=== PATIENT | female | born 2005 | race Caucasian/White ===

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

== ENCOUNTER → 2025-03-23 | Outpatient (CLI) | payer OTHER ==
--- NOTE | 2025-03-24 10:48 | MR ---
MR knee LT wo con DATE OF EXAM: 03/23/2025 9:35 PM COMPARISON: None. CLINICAL INDICATION: Female, 19 years old with history of M23.92; PHH, left knee outer pain and swell ing x3 weeks TECHNIQUE: Noncontrast multiplanar, multiecho imaging of the left knee was performed, including T1-we ighted and fluid sensitive sequences. FINDINGS: Medial meniscus: Intact. Lateral meniscus: Intact. ACL: Intact. PCL: Intact. MCL: Intact. Lateral ligaments and tendons: Intact. Extensor mechanism: The quadriceps and patellar tendons are intact. Fat pads: Preserved. Articular cartilage: Patellofemoral compartment: Intact. Medial compartment: Intact. Lateral compartment: Intact. Bone marrow: Incidental cortically based lesion is centered within the medial proximal tibial cortex and demonstrates intrinsic T1 intermediate/isointensity to skeletal muscle and T2 hyperintensity. Les ion is somewhat lobular in morphology. Nonaggressive appearance, no periostitis, endosteal scalloping , cortical breakthrough, or expansion. Lesion measures 2.4 cm in craniocaudal length. No acute fractu re. No marrow replacing process. Muscles: No muscle atrophy or acute muscle injury. Other soft tissues: No joint effusion. IMPRESSION: 1. No internal derangement on MRI of the knee. 2. 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 Recommend dedicated radiographs of the left tibia and fibula. [facility], Workstation: [email or web address] [id number], 03/24/2025 10:45 AM
== END | disposition home or self-care (01) ==
LOC: RADMRIMAIN 20:45
PROVIDERS: ATTEND Orthopaedic Surgery
DX: M23.92 Unspecified internal derangement of left knee (principal)